=== PATIENT | female | born 1950 | race Caucasian/White ===

== ENCOUNTER 2019-05-19 10:57 | Emergency (ER) | payer OTHER ==
--- NOTE | 2019-05-19 11:38 | EDM.PDOC ---
ED HPI GENERAL MEDICAL PROBLEM - General Chief Complaint: Skin Complaint Stated Complaint: INCISION POSSIBLE INFECTION Time Seen by Provider: 05/19/19 11:35 Source of Information: Reports: Patient History Limitations: Reports: No Limitations - History of Present Illness INITIAL COMMENTS - FREE TEXT/NARRATIVE: HISTORY AND PHYSICAL: History of present illness: Patient is a 68-year-old female presents to the ED with complaint of open wound. She states she had surgery on her right wrist tendon on 04/20 in [place]. She states the wound had opened up so her surgeon put chano in and she had this removed just prior to coming to [place]. She states the wound has opened again and she is concerned that it needs to be closed. She denies purulent drainage, fevers, chills. She has a follow up with her surgeon next month. Review of systems: As per history of present illness and below otherwise all systems reviewed and negative. Past medical history: As per history of present illness and as reviewed below otherwise noncontributory. Surgical history: As per history of present illness and as reviewed below otherwise noncontributory. Social history: No reported history of drug or alcohol abuse. Family history: As per history of present illness and as reviewed below otherwise noncontributory. Physical exam: General: Patient sitting comfortably in no acute distress and nontoxic appearing HEENT: Atraumatic, normocephalic, pupils reactive, negative for conjunctival pallor or scleral icterus, mucous membranes moist, throat clear, neck supple, nontender, trachea midline. No meningeal signs. Lungs: Clear to auscultation, breath sounds equal bilaterally, chest nontender. Heart: S1S2, regular, negative for clicks, rubs, or overt murmur. Abdomen: Soft, nondistended, nontender. Negative for masses or hepatosplenomegaly. Negative for costovertebral tenderness. No rigidity, rebound , guarding. Pelvis: Stable nontender. Genitourinary: Deferred. Rectal: Deferred. Extremities: There is a dime sized open wound with healthy margins to the right wrist over the 1st metacarpal. Wound edges are pink without erythema or warmth. Atraumatic, negative for cords or calf pain. Neurovascular unremarkable. Neuro: Awake, alert, oriented. Cranial nerves II through XII unremarkable. Cerebellum unremarkable. Motor and sensory unremarkable throughout. Exam nonfocal. Notes: Diagnostics: none Therapeutics: Prescriptions: Impression: Wound check Definitive disposition and diagnosis as appropriate pending reevaluation and review of above. Right Wrist Pain Score (Numeric/FACES): 7 - Related Data Allergies Allergy/AdvReac Type Severity Reaction Status Date / Time adhesive tape Allergy Rash Verified 05/19/19 11:11 ciprofloxacin [From Cipro] Allergy Anaphylactic Verified 05/19/19 11:11 Shock clindamycin Allergy Anaphylactic Verified 05/19/19 11:11 Shock digoxin Allergy Anaphylactic Verified 05/19/19 11:11 Shock erythromycin base Allergy Swelling Verified 05/19/19 11:11 levofloxacin [From Levaquin] Allergy Anaphylactic Verified 05/19/19 11:11 Shock Penicillins Allergy Anaphylactic Verified 05/19/19 11:11 Shock wool Allergy Rash Verified 05/19/19 11:11 Home Meds: Home Meds Acetaminophen/Caffeine [Excedrin Tension Headache Cplt] 1 each PO ASDIRECTED [History] Albuterol Sulfate [Albuterol Sulfate Hfa] 8.5 gm INH ASDIRECTED PRN 05/19/19 [ History] Aspirin 81 mg PO DAILY 05/19/19 [History] Dronedarone HCl [Multaq] 400 mg PO BID 05/19/19 [History] Fluticasone Propionate [Flonase] 16 gm RODRIGO ASDIRECTED 05/19/19 [History] Metoprolol Tartrate 25 mg PO BID 05/19/19 [History] Omeprazole 150 mg PO DAILY 05/19/19 [History] atorvaSTATin [Lipitor] 20 mg PO DAILY 05/19/19 [History] oxyCODONE HCl/Acetaminophen [Percocet 7.5-325 mg Tablet] 1 each PO TID 05/19/19 [History] Past Medical History Cardiovascular History: Reports: High Cholesterol, Hypertension, Pacemaker, Stents Other Neuro History: stroke - Infectious Disease History Infectious Disease History: Reports: Chicken Pox, Hepatitis A, Measles, Mumps - Past Surgical History HEENT Surgical History: Reports: Other (See Below) Other HEENT Surgeries/Procedures: ear surgery. bilateral TMJ surgery Female Surgical History: Reports: Tubal Ligation Neurological Surgical History: Reports: C-Spine, Laminectomy Musculoskeletal Surgical History: Reports: Other (See Below) Other Musculoskeletal Surgeries/Procedures:: left wrist surgery. right knee surgery Social & Family History - Family History Family Medical History: Noncontributory - Tobacco Use Smoking Status *Q: Former Smoker Used Tobacco, but Quit: Yes Month/Year Tobacco Last Used: 2004 - Caffeine Use Caffeine Use: Reports: Soda - Recreational Drug Use Recreational Drug Use: No ED ROS GENERAL - Review of Systems Review Of Systems: Comprehensive ROS is negative, except as noted in HPI. ED EXAM, SKIN/RASH Exam: See Below (see dictation) Course - Vital Signs Last Recorded V/S: Last Vital Signs Temp 97.1 F 05/19/19 11:16 Pulse 62 05/19/19 11:16 Resp 19 05/19/19 11:16 BP 156/86 H 05/19/19 11:16 Pulse Ox 94 L 05/19/19 11:16 Departure - Departure Time of Disposition: 11:36 Disposition: Home, Self-Care 01 Condition: Good Clinical Impression: Visit for wound check - Discharge Information Instructions: Wound Check Referrals: PCP,Unknown [Primary Care Provider] - Forms: ED Department Discharge Additional Instructions: The following information is given to patients seen in the emergency department who are being discharged to home. This information is to outline your options for follow-up care. We provide all patients seen in our emergency department with a follow-up referral. The need for follow-up, as well as the timing and circumstances, are variable depending upon the specifics of your emergency department visit. If you don't have a primary care physician on staff, we will provide you with a referral. We always advise you to contact your personal physician following an emergency department visit to inform them of the circumstance of the visit and for follow-up with them and/or the need for any referrals to a consulting specialist. The emergency department will also refer you to a specialist when appropriate. This referral assures that you have the opportunity for follow-up care with a specialist. All of these measure are taken in an effort to provide you with optimal care, which includes your follow-up. Under all circumstances we always encourage you to contact your private physician who remains a resource for coordinating your care. When calling for follow-up care, please make the office aware that this follow-up is from your recent emergency room visit. If for any reason you are refused follow-up, please contact the [facility] Emergency Department at and asked to speak to the emergency department charge nurse. [facility] [address] [place] [address] [facility] [address] [place] [id number] [facility] [place] Keep the area clean and dry as instructed Follow up with primary care provider and hand surgeon Return to ED as needed as discussed Sepsis Event Note - Evaluation Sepsis Screening Result: No Definite Risk - Focused Exam Vital Signs: Vital Signs Temp Pulse Resp BP Pulse Ox 05/19/19 11:16 97.1 F 62 19 156/86 H 94 L Date Exam was Performed: 05/19/19 Time Exam was Performed: 11:41
== END 2019-05-19 11:56 | disposition home or self-care (01) ==
LOC: MW.ED 10:57
DX: Z47.89 Encounter for other orthopedic aftercare (principal); I10 Essential (primary) hypertension; E78.00 Pure hypercholesterolemia, unspecified; Z87.891 Personal history of nicotine dependence; Z79.82 Long term (current) use of aspirin; Z79.899 Other long term (current) drug therapy; Z88.8 Allergy status to other drugs, medicaments and biological substances; Z88.1 Allergy status to other antibiotic agents; Z91.048 Other nonmedicinal substance allergy status; Z88.0 Allergy status to penicillin
CPT/HCPCS: 99282

== ENCOUNTER 2021-01-26 07:16 | Emergency (ER) | payer OTHER ==
[2021-01-26] MEDS ORDERED: Doxycycline 100 MG Cap PO ONE (08:30)
--- NOTE | 2021-01-26 08:32 | EDM.PDOC ---
ED HPI GENERAL MEDICAL PROBLEM - General Chief Complaint: Bite:Animal, Insect Stated Complaint: SPIDER BITE Time Seen by Provider: 01/26/21 07:59 - History of Present Illness INITIAL COMMENTS - FREE TEXT/NARRATIVE: CHIEF COMPLAINT(S): "I think I have some infected spider bite." HISTORY OF PRESENT ILLNESS: This is a 70-year-old woman with a past medical history of GERD, hyperlipidemia presents to the emergency department with "I think I have some infected spider bites. The patient states for the last 2 to 3 days she has been experiencing some itchy rash located in her right armpit and right chest wall. She states that she did see a spider but does not know if it bit her. She denies any other rashes. She denies any fever or chills. She states that there is some pain in that area which she rates as 8 out of 10 without any radiation. She states that there is some swelling associated in this area. She denies any purulent drainage. She denies any radiation of the pain. She denies any exacerbating or relieving factors. She has not yet tried anything for pain medication. She states that she lives in [place]. She said that she came in because she was concerned and does not want to delay her flight back home. She is not yet tried any pain medication. REVIEW OF SYSTEMS: Constitutional: Denies fever, chills. Eyes: Denies eye pain Ears, Nose, Mouth, & Throat: Denies earache Cardiovascular: Denies chest pain Respiratory: Denies shortness of breath Gastrointestinal: Denies Nausea, vomiting, diarrhea, hematochezia. Genitourinary: Denies hematuria Skin: Positive for itchy painful rash in the right axilla MSK: Denies joint pain Neurological: Denies blurred vision Psychiatric: Denies depression PAST MEDICAL HISTORY: As per history of present illness and as reviewed below otherwise noncontributory. SURGICAL HISTORY: As per history of present illness and as reviewed below otherwise noncontributory. SOCIAL HISTORY: As per history of present illness and as reviewed below otherwise noncontributory. FAMILY HISTORY: As per history of present illness and as reviewed below otherwise noncontributory. EXAMINATION OF ORGAN SYSTEMS/BODY AREAS: Constitutional: Blood pressure is 142/62, heart rate 65, respiratory rate 18 with an oximeter is 96% on room air. Temperature 36.9 General: Well-appearing woman who is in no acute distress Psychiatric: Appropriate mood and affect. Eyes: No scleral icterus or conjunctival erythema ENMT: Moist mucous membranes. No pharyngeal erythema Cardiovascular: Regular, rate, and rhythm. No gallops, murmurs, or rubs. Bilateral upper extremity pulses symmetric and intact. No peripheral edema. No JVD. Respiratory: Lungs clear to auscultation bilaterally. No wheezes, rales, or rhonchi. Gastrointestinal: Soft, non-tender, non-distended. Normoactive bowel sounds Genitourinary: No suprapubic tenderness Musculoskeletal: Normal range of motion. Skin: There is an area of erythema located on the right anterior chest wall just near the axilla with an additional area of erythema in the axilla with some induration and swelling. There is no fluctuance. No crepitus. Neurological: Alert, GCS 15 MEDICAL DECISION MAKING AND COURSE IN THE ED WITH INTERPRETATION/REVIEW OF DIAGNOSTIC STUDIES: This is a 70-year-old woman with a past medical history of hypertension and hyperlipidemia who presents to the emergency department with itchy, painful rash in her right axilla. At this time I do believe this secondary to cellulitis. Given that her vitals are normal I do not believe any further labs or imaging are indicated. We did provide the patient with doxycycline here and will send her with a prescription for this. She was encouraged to return to the emergency department if she had any increased swelling or redness. We did place a marker line around the area of redness. She is to follow-up with her primary care physician in [place] within the next 3 to 5 days. She was amenable to discharge and had no further questions DISPOSITION: The patient was discharged home in stable condition. The patient will follow up with care physician in 3 to 5 days CONDITION: Good PROCEDURES: None FINAL IMPRESSION(S)/DIAGNOSES: 1. Acute cellulitis of the right axilla and right anterior chest wall Shiv Leija M.D. right arm Pain Score (Numeric/FACES): 8 - Related Data Allergies Allergy/AdvReac Type Severity Reaction Status Date / Time adhesive tape Allergy Rash Verified 05/19/19 11:11 ciprofloxacin [From Cipro] Allergy Anaphylactic Verified 05/19/19 11:11 Shock clindamycin Allergy Anaphylactic Verified 05/19/19 11:11 Shock digoxin Allergy Anaphylactic Verified 05/19/19 11:11 Shock erythromycin base Allergy Swelling Verified 05/19/19 11:11 gentamicin Allergy Blurred Verified 01/26/21 07:54 Vision levofloxacin [From Levaquin] Allergy Anaphylactic Verified 05/19/19 11:11 Shock Penicillins Allergy Anaphylactic Verified 05/19/19 11:11 Shock Sulfa (Sulfonamide Allergy Rash Verified 01/26/21 07:54 Antibiotics) wool Allergy Rash Verified 05/19/19 11:11 Home Meds: Home Meds Acetaminophen/Caffeine [Excedrin Tension Headache Cplt] 1 each PO ASDIRECTED 05/19/19 [History] Albuterol Sulfate [Albuterol Sulfate Hfa] 8.5 gm INH ASDIRECTED PRN 05/19/19 [History] Aspirin 81 mg PO DAILY 05/19/19 [History] Dronedarone HCl [Multaq] 400 mg PO BID 05/19/19 [History] Fluticasone Propionate [Flonase] 16 gm RODRIGO ASDIRECTED 05/19/19 [History] Metoprolol Tartrate 25 mg PO BID 05/19/19 [History] Omeprazole 150 mg PO DAILY 05/19/19 [History] atorvaSTATin [Lipitor] 20 mg PO DAILY 05/19/19 [History] oxyCODONE HCl/Acetaminophen [Percocet 7.5-325 mg Tablet] 1 each PO TID 05/19/19 [History] Doxycycline [Vibramycin] 100 mg PO BID #14 tab 01/26/21 [Rx] Past Medical History Cardiovascular History: Reports: High Cholesterol, Hypertension, Pacemaker, Stents Other Neuro History: stroke - Infectious Disease History Infectious Disease History: Reports: Chicken Pox, Hepatitis A, Measles, Mumps - Past Surgical History HEENT Surgical History: Reports: Other (See Below) Other HEENT Surgeries/Procedures: ear surgery. bilateral TMJ surgery Female Surgical History: Reports: Tubal Ligation Neurological Surgical History: Reports: C-Spine, Laminectomy Musculoskeletal Surgical History: Reports: Other (See Below) Other Musculoskeletal Surgeries/Procedures:: left wrist surgery. right knee surgery Social & Family History - Family History Family Medical History: No Pertinent Family History - Caffeine Use Caffeine Use: Reports: Soda ED ROS GENERAL - Review of Systems Review Of Systems: See Below ED EXAM, ANIMAL BITE - Physical Exam Exam: See Below Course - Vital Signs Last Recorded V/S: Last Vital Signs Temp 36.9 C 01/26/21 07:55 Pulse 75 01/26/21 08:51 Resp 17 01/26/21 08:51 BP 131/68 01/26/21 08:51 Pulse Ox 96 01/26/21 08:51 - Orders/Labs/Meds Meds: Medications Discontinued Medications Generic Name Dose Route Start Last Admin Trade Name Mahi PRN Reason Stop Dose Admin Doxycycline Hyclate 100 mg 01/26/21 08:30 01/26/21 08:37 Doxycycline 100 Mg Cap PO 01/26/21 08:31 100 mg ONETIME ONE Administration Departure - Departure Time of Disposition: :31 Disposition: Home, Self-Care 01 Condition: Fair Clinical Impression: Cellulitis - Discharge Information Prescriptions: Doxycycline [Vibramycin] 100 mg PO BID #14 tab Instructions: Cellulitis, Adult, [id number] Referrals: PCP,Not In Area [Primary Care Provider] - Forms: ED Department Discharge Additional Instructions: You were evaluated today on an emergent basis. At this time I do believe you are experiencing a skin infection. As discussed if the redness goes out of the blue lines, pain increases, swelling increases I would like you to return to the emergency department. It is important that you take doxycycline 100 mg twice a day until the antibiotics are gone. Please use Tylenol and Motrin for pain relief and you are welcome to ice the area 20 minutes 4 times a day to help with swelling and pain. Given that you are going back to [place] I want you to follow-up with your primary care physician in 2 to 3 days for reevaluation. [facility] [address] [place] [address] [id number] [address] [id number] The patient is informed of any results of their evaluation and diagnostic workup and all questions are answered. They are given discharge instructions and return precautions. The patient is stable for discharge. The patient states they understand and agree with the plan and that they will return if their symptoms get worse or if they have any new concerns. The following information is given to patients seen in the emergency department who are being discharged to home. This information is to outline your options for follow-up care. We provide all patients seen in our emergency department with a follow-up referral. The need for follow-up, as well as the timing and circumstances, are variable depending upon the specifics of your emergency department visit. If you don't have a primary care physician on staff, we will provide you with a referral. We always advise you to contact your personal physician following an emergency department visit to inform them of the circumstance of the visit and for follow-up with them and/or the need for any referrals to a consulting specialist. The emergency department will also refer you to a specialist when appropriate. This referral assures that you have the opportunity for follow-up care with a specialist. All of these measure are taken in an effort to provide you with optimal care, which includes your follow-up. Under all circumstances we always encourage you to contact your private physician who remains a resource for coordinating your care. When calling for follow-up care, please make the office aware that this follow-up is from your recent emergency room visit. If for any reason you are refused follow-up, please contact the [facility] Emergency Department at and asked to speak to the emergency department charge nurse. Sepsis Event Note (ED) - Evaluation Sepsis Screening Result: No Definite Risk
== END 2021-01-26 08:51 | disposition home or self-care (01) ==
LOC: MW.ED 07:16
DX: L03.111 Cellulitis of right axilla (principal); L03.313 Cellulitis of chest wall; E78.00 Pure hypercholesterolemia, unspecified; I10 Essential (primary) hypertension; Z95.0 Presence of cardiac pacemaker; Z88.0 Allergy status to penicillin; Z88.2 Allergy status to sulfonamides; Z88.5 Allergy status to narcotic agent; Z91.048 Other nonmedicinal substance allergy status; Z91.09 Other allergy status, other than to drugs and biological substances; Z79.82 Long term (current) use of aspirin
CPT/HCPCS: 99282; A9270